=== PATIENT | female | born 1980 | race Caucasian/White ===

== ENCOUNTER 2023-02-25 06:27 | Emergency (ER) | payer BC ==
[2023-02-25] MEDS ORDERED: Ibuprofen 200 MG TAB ONE (07:14)
== END 2023-02-25 07:29 | disposition home or self-care (01) ==
LOC: NAV ERS 06:27
DX: J20.9 Acute bronchitis, unspecified (principal); F17.210 Nicotine dependence, cigarettes, uncomplicated
CPT/HCPCS: 87081; 87430; 87804; 87807; 99283